=== PATIENT | male | born 1985 | race Caucasian/White ===

== ENCOUNTER 2021-03-18 19:58 | Emergency (ER) | payer BC ==
[2021-03-18] MEDS ORDERED: Lidocaine Viscous Sol 2% 15 ml UD Cup ONE (23:49)
[2021-03-18] MEDS ORDERED: Mag-Al Plus 1200 MG/1200 MG/120 MG/30 ML UDCUP ONE (23:50)
[2021-03-19 00:51] LABS: #Monocytes 0.6 10x3/uL (0.0-1.1); #Neutrophils 8.8 10x3/uL (1.5-8.4); %Basophils 0.3 % (0.0-2.0); %Eosinophils 0.3 % (0.0-6.0); %Lymphocytes 5.4 % (18.0-47.0); %Monocytes 5.5 % (0.0-10.0); %Neutrophils 87.9 % (40.0-75.0); Hemoglobin 17.7 g/dL (13.5-17.5); Mean Corpuscular HGB CONC 33.4 g/dL (32.0-36.0); Mean Corpuscular Hemoglobin 27.9 pg (27.0-33.0); Mean Corpuscular Volume 83.6 fl (81.2-95.1); Mean Platelet Volume 9.5 fl (7.4-10.4); Platelet Count 220 10x3/uL (150-450); Red Blood Cell (RBC) Count 6.34 10x6/uL (4.32-5.72)
[2021-03-19 01:01] LABS: ALT (SGPT) 63 U/L (8-55); AST (SGOT) 22 U/L (5-34); Albumin 4.6 g/dL (3.5-5.0); Alkaline Phosphatase 76 U/L (40-110); Anion Gap 16 mmol/L (10-20); BUN (Urea Nitrogen) 20 mg/dL (8.9-20.6); Bilirubin, Total 1.5 mg/dL (0.2-1.2); Calc. Creatinine Clearance 0 mL/min (70-130); Calcium 8.8 mg/dL (7.8-10.44); Carbon Dioxide 23 mmol/L (22-29); Chloride 104 mmol/L (98-107); Globulin 3.4 g/dL (2.4-3.5); Glucose 121 mg/dL (70-105); Lipase 51 U/L (8-78); Potassium 4.1 mmol/L (3.5-5.1); Sodium 139 mmol/L (136-145)
== END 2021-03-19 01:48 | disposition home or self-care (01) ==
LOC: CSHERS 19:58
DX: R07.9 Chest pain, unspecified (principal); R10.13 Epigastric pain
CPT/HCPCS: 71045; 80053; 83690; 84484; 85025; 93005

== ENCOUNTER 2023-08-03 16:59 | Emergency (ER) | payer BC, SELFPAY | END 2023-08-03 20:16 | disposition home or self-care (01) | LOC: CSHERS 16:59 | DX: S46.212A Strain of muscle, fascia and tendon of other parts of biceps, left arm, initial encounter (principal); X50.1XXA Overexertion from prolonged static or awkward postures, initial encounter ==

== ENCOUNTER 2023-09-11 21:58 | Emergency (ER) | payer SELFPAY ==
[2023-09-11] MEDS ORDERED: Cephalexin 250 MG CAP ONE (22:45)
== END 2023-09-11 23:22 | disposition home or self-care (01) ==
LOC: CSHERS 21:58
DX: L25.9 Unspecified contact dermatitis, unspecified cause (principal); T81.49XA Infection following a procedure, other surgical site, initial encounter
CPT/HCPCS: 99283